=== PATIENT | female | born 1945 | race Hispanic/Latino ===

== ENCOUNTER 2019-02-24 13:08 | Inpatient (IN) | payer OTHER ==
[~2019-02-24] VITALS: Ht 160 cm; Wt 70.3 kg
[~2019-02-24 13:08] MED LIST: Z.0.ALLEGRA180 MG PO; Z.0.CITALOPRAM HBR20 PO; Z.0.OMEPRAZOLE20 MG PO; Z.0.SIMVASTATIN5 MG PO
[2019-02-24] MEDS ORDERED: PANTOPRAZOLE 40 MG 10ML VIAL IV STA (13:24)
[2019-02-24] MEDS ORDERED: ONDANSETRON HCL INJ 2MG/ML 2ML 2 MG/ML VIAL IV STA (13:24)
[2019-02-24] MEDS ORDERED: SODIUM CHLORIDE 0.9% 1000ML 1,000 ML IV STA (13:24)
[2019-02-24] MEDS ORDERED: LEVOCETIRIZINE D5 MG PO (13:47)
[2019-02-24] MEDS ORDERED: PAROXETINE HCL20 MG PO (13:47)
[2019-02-24] MEDS ORDERED: PEPTIVA (13:47)
[2019-02-24] MEDS ORDERED: MONTELUKAST SOD10 MG PO (13:47)
[2019-02-24] MEDS ORDERED: ARICEPT5 MG PO (13:47)
[2019-02-24] MEDS ORDERED: DYMISTA NASAL S23 GM (13:47)
[2019-02-24] MEDS ORDERED: BUPROPION XL150 MG PO (13:47)
[2019-02-24 13:53] LABS: BASOPHILS % 0.4 % (0.0-1.0); EOSINOPHILS # (AUTO) 0.3 (0.0-0.4); EOSINOPHILS % 2.6 % (0.0-6.0); HEMATOCRIT 40.7 % (34.2-44.1); HEMOGLOBIN 13.6 g/dL (12.0-16.0); LYMPHOCYTES # (AUTO) 2.1 (1.0-3.2); LYMPHOCYTES % 18.5 % (18.0-39.1); MEAN CORPUSCULAR HEMOGLOBIN 29.3 pg (28-32); MEAN CORPUSCULAR HGB CONC 33.4 g/dL (31-35); MEAN CORPUSCULAR VOLUME 87.7 fL (81-99); MONOCYTES # (AUTO) 0.6 (0.2-0.8); MONOCYTES % 5.6 % (4.4-11.3); NEUTROPHILS # (AUTO) 8.1 (2.1-6.9); NEUTROPHILS % 72.5 % (38.7-80.0); PLATELET COUNT 301 x10e3/uL (140-360); RED BLOOD COUNT 4.64 x10e6/uL (3.6-5.1); RED CELL DISTRIBUTION WIDTH 13.4 % (11.7-14.4)
[2019-02-24 14:11] LABS: INR 0.95; PARTIAL THROMBOPLASTIN TIME 25.1 seconds (23.8-35.5); PROTHROMBIN TIME 13.2 seconds (11.9-14.5)
[2019-02-24 14:21] LABS: ALANINE AMINOTRANSFERASE 40 IU/L (0-55); ALBUMIN 3.7 g/dL (3.5-5.0); ALBUMIN/GLOBULIN RATIO 1.3 (0.8-2.0); ALKALINE PHOSPHATASE 87 IU/L (40-150); AMYLASE 40 U/L (25-125); ANION GAP 18.8 mmol/L (8-16); BLOOD UREA NITROGEN 24 mg/dL (7-26); BUN/CREATININE RATIO 29 (6-25); CALCIUM 10.6 mg/dL (8.4-10.2); CARBON DIOXIDE 25 mmol/L (22-29); CHLORIDE 99 mmol/L (98-107); CREATINE KINASE 97 IU/L (29-168); CREATININE, SERUM 0.82 mg/dL (0.57-1.11); EST GLOMERULAR FILTRATION RATE > 60 ML/MIN (60-); GLUCOSE 156 mg/dL (74-118); LIPASE 15 U/L (8-78); MAGNESIUM 1.6 MG/DL (1.3-2.1); POTASSIUM 3.8 mmol/L (3.5-5.1); SODIUM 139 mmol/L (136-145)
--- NOTE | 2019-02-24 14:21 | Diagnostic Imaging Report ---
Chest, portable AP view History: Abdominal pain, coffee-ground emesis Comparison: No comparisons available for review IMPRESSION: The heart is within normal limits of size. The mediastinal and hilar contours are unremarkable. The basilar atelectasis is present. No focal consolidation, pleural effusion, or pneumothorax. No acute osseous abnormalities. Signed by: Jude Anderson MD on 02/24/2019 2:18 PM
[2019-02-24] MEDS ORDERED: LIDOCAINE HCL 2% LOCAL INJ 5 ML SDV VIAL INJ ONE (14:36)
[2019-02-24] MEDS ORDERED: PROPOFOL IV EMULSION 10 MG/ML 20 ML VIAL ONE (14:36)
[2019-02-24] MEDS ORDERED: PROMETHAZINE 12.5MG/ NACL 0.9% 12.5 MG/50 ML BAG IV ONE (15:15)
--- NOTE | 2019-02-24 15:28 | Diagnostic Imaging Report ---
CT of the abdomen and pelvis History: Emesis, epigastric abdominal pain Comparison: None available. Technique: Multidetector CT scanning of the abdomen and pelvis was performed from the level of the lung bases to the inferior pubic ramus with IV contrast DOSE REDUCTION: The examination was performed according to departmental dose-optimization program which includes automated exposure control, adjustment of the mA and/or kV according to patient size and/or use of iterative reconstruction technique. Discussion: Left lower lobe atelectasis is present. No focal hepatic lesions are identified. The liver is diffusely hypoattenuating compatible with hepatic steatosis. The gallbladder is surgically absent. No intrahepatic or extrahepatic biliary dilatation. The spleen is within normal limits. The bilateral adrenal glands are unremarkable. The pancreas is normal in attenuation. There is no pancreatic ductal dilatation. The kidneys are normal in size and enhance symmetrically. No renal parenchymal lesions are identified. No hydroureteronephrosis is present. No renal calculi are identified. The distal esophagus is patulous and demonstrates wall thickening up to 8 mm. The stomach is distended with fluid. The wall of the third portion of the duodenum is mildly prominent measuring up to 6 mm. There is no evidence of bowel obstruction. No signs of appendicitis. There is no free intraperitoneal air or ascites. The abdominal aorta is of normal course and caliber. The uterus is surgically absent. The urinary bladder is within normal limits. No acute osseous abnormalities are identified. IMPRESSION: 1. Wall thickening of the distal esophagus up to 8 mm. The distal esophagus is also patulous and fluid-filled. Consider correlation with upper endoscopy. 2. The wall of the third portion of the duodenum is mildly prominent measuring up to 6 mm which may be secondary to underdistention or duodenitis. 3. Status post hysterectomy and cholecystectomy. Signed by: Jude Anderson MD on 02/24/2019 3:25 PM
[2019-02-24] MEDS ORDERED: SODIUM CHLORIDE 0.9% 1000ML 1,000 ML IV ONE (15:45)
[2019-02-24 16:31] LABS: CLARITY,URINE SL CLOUDY (CLEAR); COLOR,URINE YELLOW (YELLOW); LEUKOCYTE ESTERASE ,URINE NEGATIVE (NEGATIVE); NITRITE,URINE NEGATIVE (NEGATIVE); PROTEIN,URINE DIPSTICK NEGATIVE (NEGATIVE); URINE UROBILINOGEN 0.2 mg/dL (0.2 - 1)
[2019-02-24 16:32] LABS: BILIRUBIN,URINE SMALL (NEGATIVE); KETONES,URINE 1+ (NEGATIVE)
[2019-02-24 16:50] LABS: EPITHELIAL CELLS,URINE RARE /LPF; RBC,URINE 0-5 /HPF (0-5)
[2019-02-24] MEDS ORDERED: MORPHINE SULFATE 2 MG/ML SYR 1ML IV PRN (17:00)
[2019-02-24 18:00] VITALS: BP 101/56
--- NOTE | 2019-02-24 18:00 | NUR ---
PATIENT RECEIVED FROM ER PER STRETCHER. ALERT AND VERBALLY RESPONSIVE, ABLE TO ASSIST WITH TRANSFER. DENIED PAIN AT THIS TIME. SKIN WARM AND DRY TOUCH, RESPIRATION EVEN AND UNLABORED, ABDOMEN SOFT AND NON DISTENDED. PATIENT ORIENTED TO SURROUNDINGS. BED IN LOWER POSITION, CALL LIGHT AT REACH, INSTRUCTED TO CALL FOR ASSISTANCE NEEDED.
--- NOTE | 2019-02-24 19:07 | NUR ---
Received bedside report from day nurse. Patient resting in bed, no s/s of distress or c/o pain at this time. All safety measures in place. Will continue to monitor.
[2019-02-24] MEDS ORDERED: SODIUM CHLORIDE 0.9% 50ML 50 ML ONE (19:08)
[2019-02-24] MEDS ORDERED: IOPAMIDOL 370 MG/ML 200 ML INFUS..BTL INJ ONE (19:09)
[2019-02-24 20:00] VITALS: BP 89/56
[2019-02-24] MEDS: PANTOPRAZOLE 40 MG 10ML VIAL IV SCH (20:25)
[2019-02-24 20:26] VITALS: BP 92/54
[2019-02-24 20:34] LABS: BASOPHILS % 0.3 % (0.0-1.0); EOSINOPHILS % 0.4 % (0.0-6.0); HEMATOCRIT 34.3 % (34.2-44.1); HEMOGLOBIN 11.3 g/dL (12.0-16.0); LYMPHOCYTES # (AUTO) 1.4 (1.0-3.2); LYMPHOCYTES % 17.3 % (18.0-39.1); MEAN CORPUSCULAR HEMOGLOBIN 29.2 pg (28-32); MEAN CORPUSCULAR HGB CONC 32.9 g/dL (31-35); MEAN CORPUSCULAR VOLUME 88.6 fL (81-99); MONOCYTES # (AUTO) 0.5 (0.2-0.8); MONOCYTES % 6.3 % (4.4-11.3); NEUTROPHILS # (AUTO) 5.9 (2.1-6.9); NEUTROPHILS % 75.3 % (38.7-80.0); PLATELET COUNT 233 x10e3/uL (140-360); RED BLOOD COUNT 3.87 x10e6/uL (3.6-5.1); RED CELL DISTRIBUTION WIDTH 13.3 % (11.7-14.4)
[2019-02-24 21:22] VITALS: BP 92/54
--- NOTE | 2019-02-24 21:27 | NUR ---
Dr. Gomez at bedside. Ordering EGD for tomorrow morning and explaining procedure to patient. Addendum: 02/24/19 at 2212 by Michelle Becerra RN Family also at bedside at this time.
--- NOTE | 2019-02-24 21:59 | NUR ---
Obtained informed consent from patient for tomorrow's EGD. Patient awake, alert, and oriented. No s/s of distress or c/o pain at this time. All safety measures in place. Family at bedside. Will continue to monitor.
--- NOTE | 2019-02-24 21:59 | NUR ---
Cardiac markers and CBC labs drawn as ordered.
[2019-02-24 22:39] LABS: CREATINE KINASE MB < 1.00 ng/mL (0-4.3)
[2019-02-24 22:40] LABS: CREATINE KINASE 93 IU/L (29-168)
[2019-02-25] VITALS (10 sets, daily range): BP systolic 86–109; BP diastolic 52–67
--- NOTE | 2019-02-25 04:34 | Consultation ---
DATE OF CONSULTATION: 02/24/2019 GI Consult Note REASON FOR CONSULT: Coffee-grounds emesis x1 at home. 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 This operation was performed when she was in her early 30s. She does not exactly remember the nature of the operation. She has had acute onset of nausea followed by vomiting at home and vomitus was coffee-ground. She also had a bowel movement, which was quite dark. No associated syncopal episode. The patient's brought her into the emergency room. Here, she was noted to be hemodynamically stable, not orthostatic or tachycardiac. Hemoglobin was noted at 13.6, this subsequently dropped down to 11.3 with IV fluid hydration. The patient was given 80 mg IV bolus of Protonix followed by 40 mg IV twice daily. She was subsequently transferred to the medical floor for further evaluation and management. She is not on any anticoagulants. No prior history of peptic ulcer disease. Denies any abdominal pain. She has no known history of any liver cirrhosis. REVIEW OF SYSTEMS: Twelve point system reviewed, symptomatology is limited as per HPI. PAST MEDICAL HISTORY: GERD, hyperlipidemia, early dementia, depression, seasonal allergies. PAST SURGICAL HISTORY: Cholecystectomy, partial hysterectomy, colonoscopy two years ago by Dr. Sevilla, partial esophagectomy. FAMILY HISTORY: Noncontributory. SOCIAL HISTORY: No smoking, alcohol, or any illicit drug use. ALLERGIES: NO KNOWN DRUG ALLERGIES. HOME MEDICATIONS: 1. Fluticasone nasal spray. 2. Bupropion. 3. Donepezil. 4. Levocetirizine. 5. Montelukast. 6. Omeprazole. 7. Paroxetine. 8. Simvastatin. INPATIENT MEDICATION: Reviewed, patient is getting pantoprazole IV twice daily along with normal saline IV fluids. PHYSICAL EXAMINATION: VITAL SIGNS: Temperature 97.9, pulse 93, respirations 20, blood pressure 89/56 to 92/54, oxygen saturation 97% on room air. GENERAL: Not in any acute distress. HEENT: Oral mucosa is moist. Anicteric sclerae. CVS: S1-S2 regular. LUNGS: Bilaterally grossly clear. ABDOMEN: Obese, soft, nondistended, nontender. No palpable mass or hernia. Positive bowel sounds. EXTREMITIES: Warm, no leg edema. LABORATORY DATA: WBC 7.8, hemoglobin 11.3 down from 13.6, MCV 88.6, platelet count 233. Sodium 139, potassium 3.8, chloride 99, bicarb 25, BUN 24, creatinine 0.82, glucose 156. Liver enzymes showed a total bilirubin 0.6, AST 35, ALT 40, alkaline phosphatase 87. Liver enzymes normal. CT of the abdomen and pelvis with contrast showed a wall thickening of the distal esophagus up to 8 mm. 1. Distal esophagus is also patulous and fluid-filled. Consider correlation with upper endoscopy. 2. Wall of the 3rd portion of the duodenum is mildly prominent, measuring up to 6 mm, which may be secondary to under distention or duodenitis. 3. Status post hysterectomy and cholecystectomy. IMPRESSION: Coffee-grounds emesis x1 at home without any significant drop in hemoglobin. PLAN: Agree to continue IV PPI daily, CT abnormality of the distal esophagus is noted, this could be likely postsurgical. However, further evaluation with upper endoscopy is warranted. This will be performed tomorrow. Keyur Gomez MD SA/GENESIS /[id number]
[2019-02-25 06:55] LABS: BASOPHILS % 0.5 % (0.0-1.0); EOSINOPHILS # (AUTO) 0.3 (0.0-0.4); EOSINOPHILS % 4.9 % (0.0-6.0); HEMATOCRIT 30.3 % (34.2-44.1); HEMOGLOBIN 9.9 g/dL (12.0-16.0); LYMPHOCYTES # (AUTO) 2.3 (1.0-3.2); LYMPHOCYTES % 37.6 % (18.0-39.1); MEAN CORPUSCULAR HEMOGLOBIN 29.3 pg (28-32); MEAN CORPUSCULAR HGB CONC 32.7 g/dL (31-35); MEAN CORPUSCULAR VOLUME 89.6 fL (81-99); MONOCYTES # (AUTO) 0.8 (0.2-0.8); MONOCYTES % 13.3 % (4.4-11.3); NEUTROPHILS # (AUTO) 2.7 (2.1-6.9); NEUTROPHILS % 43.5 % (38.7-80.0); PLATELET COUNT 209 x10e3/uL (140-360); RED BLOOD COUNT 3.38 x10e6/uL (3.6-5.1); RED CELL DISTRIBUTION WIDTH 13.5 % (11.7-14.4)
--- NOTE | 2019-02-25 07:10 | NUR ---
Gave bedside report to day nurse. Patient awake and resting in bed, no s/s of distress or c/o pain at this time. All safety measures in place.
--- NOTE | 2019-02-25 07:12 | NUR ---
walking rounds completed, change of shift report received, pt in stable condition, will continue to monitor.
[2019-02-25 07:15] LABS: CREATINE KINASE MB < 1.00 ng/mL (0-4.3)
[2019-02-25 07:44] LABS: ALANINE AMINOTRANSFERASE 23 IU/L (0-55); ALBUMIN/GLOBULIN RATIO 1.6 (0.8-2.0); ALKALINE PHOSPHATASE 49 IU/L (40-150); ANION GAP 10.4 mmol/L (8-16); BLOOD UREA NITROGEN 24 mg/dL (7-26); BUN/CREATININE RATIO 35 (6-25); CALCIUM 7.9 mg/dL (8.4-10.2); CARBON DIOXIDE 25 mmol/L (22-29); CHLORIDE 108 mmol/L (98-107); CREATININE, SERUM 0.68 mg/dL (0.57-1.11); EST GLOMERULAR FILTRATION RATE > 60 ML/MIN (60-); GLUCOSE 94 mg/dL (74-118); POTASSIUM 3.4 mmol/L (3.5-5.1); SODIUM 140 mmol/L (136-145)
[2019-02-25 08:10] LABS: CREATINE KINASE 72 IU/L (29-168)
[2019-02-25] MEDS: PANTOPRAZOLE 40 MG 10ML VIAL IV SCH (09:17)
--- NOTE | 2019-02-25 11:01 | NUR ---
per PT, pt had low blood pressure during their assessment, however she remained asymptomatic; supine 93/51, sitting 93/53, standing 68/45, then when pt placed supine after Trendelenberg BP was 117/59. pressure taken on left arm with automatic cuff
--- NOTE | 2019-02-25 11:59 | NUR ---
pt going to OR for EGD. left in stable condition.
--- NOTE | 2019-02-25 13:51 | NUR ---
received report from Recovery, pt blood pressure 87/59, otherwise in stable condition. awaiting pt arrival back to unit.
[2019-02-25] MEDS ORDERED: MIDAZOLAM HCL 2 MG/2 ML VIAL ONE (15:05)
[2019-02-25] MEDS ORDERED: FENTANYL CITRATE/PF 100MCG/2 ML INJ ONE (15:05)
--- NOTE | 2019-02-25 17:08 | History and Physical ---
PRIMARY CARE PHYSICIAN: Dr. Jocelyne Rodríguez. CHIEF COMPLAINT: Hematemesis, nausea and vomiting, abdominal pain. HISTORY OF PRESENT ILLNESS: The patient is a 73-year-old female came in with nausea and vomiting with coffee-ground emesis. The symptoms for the past few days associated with some abdominal pain. There was no melena. The patient had a history of gastric surgery, poor historian, but she did have some sort of a growth that was removed from her esophagus many years ago. The patient is otherwise stable now. No further symptoms. She is pending for EGD. PAST MEDICAL HISTORY: Major depression, reflux, dyslipidemia, early dementia, chronic asthma, and anxiety disorder. PAST SURGICAL HISTORY: Abdominal esophageal lesion removal years ago, cholecystectomy, and hysterectomy. SOCIAL HISTORY: The patient lives with her spouse. She does not smoke or use alcohol. No regular drugs. ALLERGIES: NO KNOWN ALLERGIES. HOME MEDICATIONS: List is reviewed. REVIEW OF SYSTEMS: Epigastric pain, abdominal pain, but no chest pain or shortness of breath. PHYSICAL EXAMINATION: VITAL SIGNS: Temperature is 98, blood pressure 101/65, pulse rate 74, and respirations 18. GENERAL: The patient is not in acute distress. HEENT: Normocephalic and atraumatic. Anicteric. NECK: Supple grossly. PULMONARY: Clear. CARDIOVASCULAR: Regular rate and rhythm. ABDOMEN: Epigastric discomfort. No rebound or guarding. EXTREMITIES: No cyanosis or edema. NEUROLOGIC: No gross focal deficit. LABORATORY DATA: WBC is 11.2, hemoglobin 13.6, hematocrit 40.7, and platelet is 301. Repeated hemoglobin and hematocrit are 9.9 and 30.3 today. Chemistry; sodium is 140, potassium 3.4, chloride 108, bicarb 25, BUN is 24, creatinine 0.7, and glucose 94. IMAGING TESTS: CT abdomen and pelvis with contrast showed that the patient has wall thickening of the distal esophagus up to 8 mm. Distal esophagus is also patulous and fluid-filled. Consider correlation with upper endoscopy for which the patient is today has a schedule. IMPRESSION: 1. Nausea and vomiting. 2. Electrolyte disorder. 3. Abnormal CT scan as mentioned above. PLAN: The patient will have IV fluid rehydration. Replace electrolytes. Home medication resumed and also after the EGD finding, we will plan regarding any further intervention if needed. The patient is otherwise stable at this time. MD JANETTE Rubio /[id number]
[2019-02-25] MEDS: SOD CHL 0.45%/POT CHL 20MEQ 1,000 ML IV SCH (17:42)
--- NOTE | 2019-02-25 19:21 | NUR ---
Received bedside report from day nurse. Patient resting in bed, no s/s of distress or c/o pain at this time. All safety measures in place. Family at bedside. Will continue to monitor.
[2019-02-26] VITALS: BP 133/63
[2019-02-26 04:00] VITALS: BP 98/61
[2019-02-26] MEDS: SOD CHL 0.45%/POT CHL 20MEQ 1,000 ML IV SCH ×2 (06:15→06:19)
[2019-02-26 06:41] LABS: BASOPHILS % 0.5 % (0.0-1.0); EOSINOPHILS # (AUTO) 0.7 (0.0-0.4); EOSINOPHILS % 9.4 % (0.0-6.0); HEMATOCRIT 29.7 % (34.2-44.1); HEMOGLOBIN 9.7 g/dL (12.0-16.0); LYMPHOCYTES # (AUTO) 2.6 (1.0-3.2); LYMPHOCYTES % 35.6 % (18.0-39.1); MEAN CORPUSCULAR HEMOGLOBIN 29.6 pg (28-32); MEAN CORPUSCULAR HGB CONC 32.7 g/dL (31-35); MEAN CORPUSCULAR VOLUME 90.5 fL (81-99); MONOCYTES # (AUTO) 0.7 (0.2-0.8); MONOCYTES % 9.3 % (4.4-11.3); NEUTROPHILS # (AUTO) 3.3 (2.1-6.9); NEUTROPHILS % 44.9 % (38.7-80.0); PLATELET COUNT 192 x10e3/uL (140-360); RED BLOOD COUNT 3.28 x10e6/uL (3.6-5.1); RED CELL DISTRIBUTION WIDTH 13.4 % (11.7-14.4)
--- NOTE | 2019-02-26 06:54 | NUR ---
Bedside report given to day nurse. Patient resting in bed, no s/s of distress or c/o pain at this time. All safety measures in place.
--- NOTE | 2019-02-26 06:56 | NUR ---
walking rounds completed, change of shift report received from weight shifter RN. pt in stable condition.
[2019-02-26 06:59] LABS: ANION GAP 9.5 mmol/L (8-16); BLOOD UREA NITROGEN 11 mg/dL (7-26); BUN/CREATININE RATIO 16 (6-25); CALCIUM 8.3 mg/dL (8.4-10.2); CARBON DIOXIDE 29 mmol/L (22-29); CHLORIDE 103 mmol/L (98-107); CREATININE, SERUM 0.67 mg/dL (0.57-1.11); EST GLOMERULAR FILTRATION RATE > 60 ML/MIN (60-); GLUCOSE 94 mg/dL (74-118); POTASSIUM 3.5 mmol/L (3.5-5.1); SODIUM 138 mmol/L (136-145)
[2019-02-26] MEDS ORDERED: PANTOPRAZOLE SOD 40 MG TABEC PO SCH (07:30)
[2019-02-26 07:35] VITALS: BP 99/58
[2019-02-26 09:25] VITALS: BP 99/58
[2019-02-26] MEDS ORDERED: PANTOPRAZOLE SO40 MG PO (10:37)
[2019-02-26] MEDS ORDERED: COLACE100 MG PO (10:38)
[2019-02-26] MEDS ORDERED: CARAFATE1 GM/10 ML PO (10:38)
--- NOTE | 2019-02-27 09:17 | Discharge Summary ---
PRIMARY CARE PHYSICIAN: Jocelyne Rodríguez MD POWER BENDER OPERATOR: Keyur Gomez MD FINAL DIAGNOSES: 1. Dilated esophagus, hematemesis, status post upper esophageal stenosis dilatation with EGD. 2. Mild gastritis, normal duodenum. No active bleeding. There is postoperative changes in the distal esophagus and a biopsy was done. SUMMARY: The patient is a pleasant 73-year-old female with hematemesis. The patient only have a couple of episodes with pain. The patient has esophageal webs in the past surgical intervention years ago. The patient came in with some hematemesis. The patient hemoglobin and hematocrit are 9.7 and 29.7. No new bleed. The patient is stable. She has tolerated all her diet. She is status post EGD with upper esophageal stenosis dilatation. There is also multiple biopsies that was done. The patient to follow up with Dr. Gomez for her biopsy followup. The patient will go home with Protonix 40 mg twice a day, Carafate suspension 1 g q.a.c. HS and Colace 100 mg twice daily. The patient is stable. Follow up for biopsy report. MD TIFFANY Rubio/YOLETTEL /[id number]
== END 2019-02-26 11:55 | disposition home or self-care (01) | DRG 391 ==
LOC: ER 13:08 → ERHOLD 15:36 → MED/SURG3 17:51
PROVIDERS: ADMIT Internal Medicine; ATTEND Internal Medicine
PROC: 0D758ZZ Dilation of Esophagus, Via Natural or Artificial Opening Endoscopic (ICD-10-PCS; principal; 2019-02-24)
PROC: 0DB48ZX Excision of Esophagogastric Junction, Via Natural or Artificial Opening Endoscopic, Diagnostic (ICD-10-PCS; 2019-02-24)
DX: K22.2 Esophageal obstruction (principal); Q39.4 Esophageal web; K29.71 Gastritis, unspecified, with bleeding; E87.8 Other disorders of electrolyte and fluid balance, not elsewhere classified; F32.9 Major depressive disorder, single episode, unspecified; F03.90 Unspecified dementia, unspecified severity, without behavioral disturbance, psychotic disturbance, mood disturbance, and anxiety; F41.9 Anxiety disorder, unspecified; K20.9 Esophagitis, unspecified; K29.80 Duodenitis without bleeding
CPT/HCPCS: 36415; 43239; 71045; 74177; 80048; 80053; 81001; 82150; 82550; 82553; 82607; 83690; 83735; 84443; 84484; 85025; 85610; 85730; 86850; 86900; 86920; 87086; 88305; 88312; 93005; 99284; J2001; J2250; J2270; J2405; J2550; J3010; J7030; Q9967